=== PATIENT | male | born 1960 | race American Indian/Alaskan Native ===

== ENCOUNTER 2018-07-01 05:51 | Day surgery (SDC) | payer MEDICARE ==
[2018-07-01] MEDS ORDERED: NACL BACTERIOSTATIC INFILTRATI ONE (06:39)
[2018-07-01] MEDS ORDERED: LACTATED RINGERS 1,000 ML IV SCH (07:00)
[2018-07-01] MEDS ORDERED: VERSED PO NR (07:00)
[2018-07-01] MEDS ORDERED: ANCEF/STERILE WATER 2 GM/20 ML IV NR (07:02)
[2018-07-01] MEDS ORDERED: GENTAMICIN/NS 80 MG/100 ML 100 ML IV ONE (07:14)
[2018-07-01] MEDS ORDERED: DIPRIVAN 10 MG/ML IV ONE (07:29)
[2018-07-01] MEDS ORDERED: SUBLIMAZE ONE (07:29)
--- NOTE | 2018-07-01 07:32 | Anesthesia Consultation ---
Anesthesia Consult and Med Hx Date of service: 07/01/18 - Airway Anesthetic Teeth Evaluation: Poor (prominent overbite) ROM Head & Neck: Adequate Mental/Hyoid Distance: Adequate Mallampati Class: Class III Intubation Access Assessment: Possibly Difficult (mother denies hx difficult intubation) - Pulmonary Exam CTA: Yes - Cardiac Exam Cardiac Exam: RRR - Pre-Operative Health Status ASA Pre-Surgery Classification: ASA3 Proposed Anesthetic Plan: General - Pulmonary Hx Smoking: No Hx Asthma: No Hx Respiratory Symptoms: No Hx Sleep Apnea: No (LORI PRE SCREEN HIGH RISK.) - Cardiovascular System Hx Hypertension: Yes (recent diagnosis. Took losartan this morning.) Hx Heart Attack/AMI: No Hx Percutaneous Transluminal Coronary Angioplasty (PTCA): No Hx Cardia Arrhythmia: No - Central Nervous System Hx Neuromuscular Disorder: No Hx Seizures: No CVA: No Hx Psychiatric Problems: Yes (developmental delay; mother is primary surveillance inspector) - Gastrointestinal Hx Gastroesophageal Reflux Disease: No - Endocrine Hx Renal Disease: No Hx Liver Disease: No Hx Non-Insulin Dependent Diabetes: Yes (previously on medication; now diet controlled.) Hx Thyroid Disease: No - Hematic Hx Anemia: No - Other Systems Hx Obesity: No - Additional Comments Anesthesia Medical History Comments: No hx anesthetic complications.
[2018-07-01] MEDS ORDERED: SUBLIMAZE IV PRN (07:33)
--- NOTE | 2018-07-01 07:33 | Anesthesia Day of Surgery ---
Anesthesia Day of Surgery - Day of Surgery Patient Examined: Yes Patient H&P Reviewed: Yes Patient is NPO: Yes
[2018-07-01] MEDS ORDERED: NS IV ONE (07:46)
[2018-07-01] MEDS ORDERED: GENTAMICIN IV ONE ×2 (07:46→08:00)
[2018-07-01] MEDS ORDERED: NEO SYNEPHRINE/NS Syringe(OR USE) IV ONE (07:50)
[2018-07-01] MEDS ORDERED: BREVIBLOC IV ONE (07:50)
[2018-07-01] MEDS ORDERED: NACL 0.9% IV ONE (08:00)
[2018-07-01] MEDS ORDERED: WATER FOR IRRIG STERILE IR ONE (08:45)
--- NOTE | 2018-07-01 08:47 | Short Stay Summary ---
Short Stay Documentation Date of service: 07/01/18 - History H&P: obtained from office - Allergies and Medications Current Medications: Allergies No Known Allergies Allergy (Verified 06/26/18 09:50) Home Medications Medication Instructions Recorded Confirmed Last Taken Type Losartan [Cozaar] 50 mg PO QDAY 06/26/18 07/01/18 07/01/18 05:15 History Lovastatin [Altoprev] 40 mg PO DAILY 06/26/18 07/01/18 06/30/18 History Active Medications Cefazolin Sodium (Ancef/Sterile Water 2 Gm/20 Ml) 2 gm IV PREOP NR Stop: 07/01/18 23:59 Fentanyl (Sublimaze) 50 mcg IV Q5MIN PRN PRN Reason: Pain , Severe (7-10) Stop: 07/01/18 16:00 Lactated Ringer's (Lactated Ringers) 1,000 mls @ 100 mls/hr IV DIRECT BLANCA Last Admin: 07/01/18 07:35 Dose: 100 mls/hr Documented by: Midazolam HCl (Versed) 20 mg PO PREOP NR Stop: 07/01/18 23:59 Last Admin: 07/01/18 06:45 Dose: 20 mg Documented by: - Brief post op/procedure progress note Date of procedure: 07/01/18 Pre-op diagnosis: elevated psa, bph Procedure: cysto, rpg, pus 102cc, bx Anesthesia: GETA Surgeon: HERRERA PINEDA Estimated blood loss: minimal Pathology: list (prostate cores) Specimen disposition: to lab Condition: stable - Hospital course Hospital course: yumiko francis norco on chart - Disposition Condition at discharge: Stable Disposition: DC-01 TO HOME OR SELFCARE Short Stay Discharge Plan Follow up with: ROBERT RODRIGEZ MD [Primary Care Provider] - 7 Days
[2018-07-01] MEDS ORDERED: FLOMAX PO SCH (10:00)
--- NOTE | 2018-07-01 10:01 | Operative Report ---
PREOPERATIVE DIAGNOSES: Elevated PSA at 4.7, benign prostatic hypertrophy. POSTOPERATIVE DIAGNOSES: Elevated PSA at 4.7, benign prostatic hypertrophy. PROCEDURE: Cystoscopy, bilateral retrograde pyelograms, transrectal ultrasound biopsy of prostate (102 grams). SURGEON: Cameron Kellogg MD ANESTHESIA: General. ESTIMATED BLOOD LOSS: Minimal. FLUIDS: Crystalloid. COMPLICATIONS: No complications. INDICATIONS: This 58-year-old gentleman seen in the office for history of elevated PSA of 4.7, also repeat PSA of 5. He has a history of kidney stones which has been treated by us in the past. He is a special needs gentleman and his mother was present for the visit. We discussed options. They agreed to proceed with surgical intervention. He also has history of a BPH. DESCRIPTION OF PROCEDURE: The patient was taken to the operative suite, placed in a supine position. After adequate general anesthesia, placed in a dorsal lithotomy position, prepped and draped in the sterile fashion. Pancystourethroscopy was performed with 22-Albanian Storz cystoscope, no urethral abnormalities. His prostate did display moderate trilobar prostatic obstruction. No tumors or stones were noted. Both ureteral orifices in normal position. He did have a significant median lobe . Bilateral retrograde pyelograms were obtained with an 8 Albanian Avella catheter and 8 mL of contrast. No filling defects or obstruction. He did have some J hooking of the lower ureters consistent with BPH. Next, using transrectal ultrasound 3D measurements of the prostate revealed 102 grams. Using a template biopsy 12 core biopsy was taken, four at the base, at the mid, and then the apex of the prostate. No suspicious lesions could be appreciated. His bladder was drained. He tolerated the procedure well. He will go home on Cipro, [place], and FloAerob. JOB# [id number] [facility]
--- NOTE | 2018-07-01 10:07 | Operative Report ---
PREOPERATIVE DIAGNOSES: Elevated prostate specific antigen 4.7, benign prostatic hypertrophy. POSTOPERATIVE DIAGNOSES: Elevated prostate specific antigen 4.7, benign prostatic hypertrophy. PROCEDURE: Cystoscopy, bilateral retrograde pyelograms, transrectal ultrasound and biopsy of prostate (102 mL). SURGEON: Cameron Kellogg MD ANESTHESIA: General. ESTIMATED BLOOD LOSS: Minimal. FLUIDS: Crystalloid. COMPLICATIONS: No complications. INDICATIONS FOR PROCEDURE: This patient is a 58-year-old gentleman seen in the office. He is a special needs gentleman and presents with his mother. He has had a history of kidney stones in the past that was treated. Now, he has elevated PSA of 4.7, repeat was 5. He presents now for surgical intervention. He does have some mild prostatism and therefore was elected to cystoscopy as well. DESCRIPTION OF PROCEDURE: The patient was taken to the operative suite, placed in the supine. DICTATION ENDS HERE. JOB# [id number] [facility]
--- NOTE | 2018-07-01 12:36 | Post Anesthesia Evaluation ---
- Post Anesthesia Evaluation Patient Participated: Yes Airway Patent: Yes Stable Respiratory Function: Yes Nausea/Vomiting: No Temp > 96.8F: Yes Pain Manageable: Yes Adequeate Hydration: Yes Anesthesia Complications: No
[2018-07-01 15:58] VITALS: BP 132/75
--- NOTE | 2018-07-02 07:32 | Fluoroscopy Report ---
FLUOROSCOPY RETROGRADE UROGRAPHY: HISTORY: Elevated PSA. FINDINGS: Fluoroscopy was provided by radiology during retrograde urography by the urologist. 8 fluoroscopic images were captured. There is adequate filling of the ureters and intrarenal collecting systems with no filling defects or anatomic abnormalities identified. A prominent prostate indentation at the base of the bladder is noted. Please correlate with the procedural report if needed. IMPRESSION: Retrograde pyelograms within normal limits.
--- NOTE | 2018-07-04 00:38 | Ultrasound Report ---
PROCEDURE: ULTRASOUND TRANSRECTAL TECHNIQUE: Real-time sonography in multiple planes of the prostate, seminal vesicles, and perirectal space was performed with image documentation HISTORY: ELEVATED PSA; PROSTATE BIOPSY COMPARISONS: None . FINDINGS: Prostate dimensions: 7.03 x 3.95 x 7.04 cm . IMPRESSION: Ultrasound guidance was provided for transrectal biopsy. . This document is electronically signed by Dino Aragon MD., July 04 2018 12:36:03 AM ET
== END 2018-07-01 12:40 | disposition home or self-care (01) ==
LOC: OR 05:51
PROVIDERS: ATTEND Urology
DX: N40.0 Benign prostatic hyperplasia without lower urinary tract symptoms (principal); E78.00 Pure hypercholesterolemia, unspecified; I10 Essential (primary) hypertension; E11.9 Type 2 diabetes mellitus without complications; Z87.442 Personal history of urinary calculi; Z79.899 Other long term (current) drug therapy; Z90.49 Acquired absence of other specified parts of digestive tract
CPT/HCPCS: 52005; 55700; 74420; 76872; 82962; 88305; A4217; C1758; J0690; J1580; J2370; J2704; J3010; J7120; Q9967

== ENCOUNTER 2021-06-02 08:27 | Day surgery (SDC) | payer MEDICARE ==
[~2021-06-02 08:27] MED LIST: LACTATED RINGERS 1,000 ML IV SCH; MIDAZOLAM 2 MG/2 ML INJ IV NR
[2021-06-02] MEDS ORDERED: ceFAZolin/STERILE WATER 2 GM/20 ML SYRINGE IV NR (09:00)
--- NOTE | 2021-06-02 09:27 | Anesthesia Day of Surgery ---
Anesthesia Day of Surgery - Day of Surgery Patient Examined: Yes Patient H&P Reviewed: Yes Patient is NPO: Yes
--- NOTE | 2021-06-02 09:27 | Anesthesia Consultation ---
Anesthesia Consult and Med Hx Date of service: 06/02/21 - Airway Anesthetic Teeth Evaluation: Good ROM Head & Neck: Adequate Mental/Hyoid Distance: Adequate Mallampati Class: Class II Intubation Access Assessment: Probably Good - Pre-Operative Health Status ASA Pre-Surgery Classification: ASA3 Proposed Anesthetic Plan: General - Pulmonary Hx Smoking: No Hx Respiratory Symptoms: No Hx Sleep Apnea: No (LORI PRE SCREEN HIGH RISK) - Cardiovascular System Hx Hypertension: Yes Hx Heart Attack/AMI: No Hx Percutaneous Transluminal Coronary Angioplasty (PTCA): No Hx Cardia Arrhythmia: No - Central Nervous System Hx Neuromuscular Disorder: No Hx Seizures: No CVA: No Hx Psychiatric Problems: Yes (developemental delay) - Endocrine Hx Renal Disease: No Hx Liver Disease: No Hx Non-Insulin Dependent Diabetes: Yes (pre-DM) Hx Thyroid Disease: No - Other Systems Hx Obesity: No - Additional Comments Anesthesia Medical History Comments: No hx anesthetic complications. Anesthetic plan discussed with and consent obtained from NOK at bedside.
[2021-06-02] MEDS ORDERED: LIDOCAINE MPF (2%) 20 MG/1 ML VIAL 5 ML ONE (09:47)
[2021-06-02] MEDS ORDERED: fentaNYL 100 MCG/2 ML INJ ONE (09:48)
[2021-06-02] MEDS ORDERED: propofoL 200 MG/20 ML VIAL IV ONE (09:48)
[2021-06-02] MEDS ORDERED: ePHEDrine SULFATE 50 MG/1 ML INJ ONE (10:23)
[2021-06-02] MEDS ORDERED: ONDANSETRON 4 MG/2 ML INJ ONE (10:23)
[2021-06-02] MEDS ORDERED: KETOROLAC 30 MG/1 ML INJ ONE (10:23)
[2021-06-02] MEDS ORDERED: dexAMETHasone 20 MG/5 ML VIAL ONE (10:23)
--- NOTE | 2021-06-02 10:50 | Short Stay Summary ---
Short Stay Documentation Date of service: 06/02/21 - History H&P: obtained from office - Allergies and Medications Current Medications: Allergies No Known Allergies Allergy (Verified 06/26/18 09:50) Home Medications Medication Instructions Recorded Confirmed Last Taken Type Losartan [Cozaar] 50 mg PO QDAY 06/26/18 06/01/21 06/01/21 History Lovastatin [Altoprev] 40 mg PO DAILY 06/26/18 06/01/21 06/01/21 History metFORMIN [Glucophage] 500 mg PO QDAY 06/01/21 06/01/21 06/01/21 History Active Medications Cefazolin Sodium (Cefazolin/Sterile Water 2 Gm/20 Ml Syringe) 2 gm IV PREOP NR Stop: 06/02/21 23:59 Lactated Ringer's (Lactated Ringers) 1,000 mls @ 100 mls/hr IV DIRECT BLANCA Stop: 06/02/21 23:59 Last Admin: 06/02/21 09:35 Dose: 100 mls/hr Midazolam HCl (Midazolam 2 Mg/2 Ml Inj) 2 mg IV PREOP NR Stop: 06/02/21 23:00 Last Admin: 06/02/21 09:40 Dose: 2 mg - Brief post op/procedure progress note Date of procedure: 06/02/21 Pre-op diagnosis: left ureteral stone Post-op diagnosis: same Procedure: ESWL--left Anesthesia: GETA Surgeon: HERRERA PINEDA Specimen disposition: to lab Condition: stable - Hospital course Hospital course: post op info on chart, pt has pain meds - Disposition Condition at discharge: Stable Disposition: 01 HOME / SELF CARE / HOMELESS Short Stay Discharge Plan Follow up with: ROBERT RODRIGEZ MD [Primary Care Provider] - 7 Days
--- NOTE | 2021-06-02 11:12 | Operative Report ---
DATE OF SURGERY: 06/02/2021 PREOPERATIVE DIAGNOSIS: Left ureteral stone. POSTOPERATIVE DIAGNOSIS: Left distal ureteral stone. PROCEDURES: Left extracorporal shockwave lithotripsy. SURGEON: Cameron Kellogg MD ANESTHESIA: General. ESTIMATED BLOOD LOSS: Minimal. FLUIDS: Crystalloid. COMPLICATIONS: No complications. INDICATIONS: This patient is a 61-year-old gentleman known to our service with a history of kidney stones. He had some blood in his urine. He underwent CT abdomen and pelvis, was found to have a 6-7 mm mid ureteral stone. We discussed options. The patient has a history of decreased mentation and mother and brother were consulted regarding options. They agreed to proceed with surgical intervention. DESCRIPTION OF PROCEDURE: The patient was taken to the operative suite, placed in a supine position. After adequate general anesthesia, a 7 mm stone was localized in the distal ureter in 2 planes. Extracorporal shock wave lithotripsy was administered with a maximum kV of 9 and 2500 shocks. Adequate fragmentation could be appreciated. The patient tolerated the procedure well. He was extubated and taken to recovery room. The family has pain meds. He will follow up in the office. TID: [id number] RECEIPT: [id number] [facility]
[2021-06-02 11:19] VITALS: BP 121/83
== END 2021-06-02 08:28 | disposition home or self-care (01) ==
LOC: OR 08:27
PROVIDERS: ATTEND Urology
DX: N20.1 Calculus of ureter (principal); E78.00 Pure hypercholesterolemia, unspecified; I10 Essential (primary) hypertension; E11.9 Type 2 diabetes mellitus without complications; F41.9 Anxiety disorder, unspecified; Z98.890 Other specified postprocedural states; Z79.899 Other long term (current) drug therapy; Z79.84 Long term (current) use of oral hypoglycemic drugs; Z98.41 Cataract extraction status, right eye; Z98.42 Cataract extraction status, left eye; Z90.49 Acquired absence of other specified parts of digestive tract
CPT/HCPCS: 50590; 82962; J0690; J1100; J1885; J2250; J2405; J2704; J3010; J3490; J7120

== ENCOUNTER 2021-08-05 07:52 | Outpatient (CLI) | payer MEDICARE ==
[2021-08-05 08:58] LABS: Albumin 4.6 g/dL (3.9-5); BUN/Creatinine Ratio 15; Blood Urea Nitrogen 16 mg/dL (9-20); Calcium 10.1 mg/dL (8.4-10.2); Hemolysis Index 7
[2021-08-05 10:16] LABS: Creatinine,Urine 110.7 mg/dL (0.1-20.0); Protein/Creatinine Ratio,Urine 0.09
[2021-08-09 13:53] LABS: Vitamin D, 25-OH, D2 <4 ng/mL
== END 2021-08-05 07:53 | disposition home or self-care (01) ==
LOC: LAB 07:52
PROVIDERS: ATTEND Internal Medicine Nephrology
DX: N20.0 Calculus of kidney (principal)
CPT/HCPCS: 36415; 80048; 82040; 82306; 82570; 84100; 84156